=== PATIENT | male | born 2000 | race Caucasian/White ===

== ENCOUNTER 2021-03-27 16:07 | Emergency (ER) | payer OTHER, SELFPAY ==
--- NOTE | 2021-03-27 16:12 | XRR_ITS ---
PROCEDURE INFORMATION: Exam: XR Chest Exam date and time: 03/27/2021 4:12 PM Age: 21 years old Clinical indication: Patient HX: N/v fever x 6 days TECHNIQUE: Imaging protocol: XR of the chest. Views: 1 view. COMPARISON: No relevant prior studies available. FINDINGS: Lungs: Unremarkable. No consolidation. Pleural spaces: Unremarkable. No pleural effusion. No pneumothorax. Heart/Mediastinum: Unremarkable. No cardiomegaly. Bones/joints: Unremarkable. XR/XR chest 1V portable [id number] IMPRESSION: No acute findings.
[2021-03-27 17:04] VITALS: BP 106/71; PULSE 72; RESP 18; TEMP 37.1; O2SAT 99; BMI 22.8
[2021-03-27 19:46] LABS: Basophils % 0.5 %; Eosinophils # 0.2 10^3/uL (0.0-0.8); Eosinophils % 4.3 %; Hematocrit 44.5 % (42.0-52.0); Hemoglobin 15.9 g/dL (11.7-16.6); Lymphocytes # 1.8 10^3/uL (1.5-6.5); Lymphocytes % 41.2 %; Mean Corpuscular HGB Conc 35.7 g/dL (30.0-36.0); Mean Corpuscular Hemoglobin 30.1 pg (28.0-34.0); Mean Corpuscular Volume 84.3 fl (80-94); Mean Platelet Volume 9.7 fL (7.4-10.4); Monocytes # 0.6 10^3/uL (0.2-0.9); Neutrophils # 1.78 10^3/uL (1.8-8.0); Neutrophils % 40.5 %; Nucleated Red Blood Cells % 0 %; Platelet Count 239 10^3/cmm (130-400); Red Blood Count 5.28 10^6/uL (4.1-5.3); Red Cell Distribution Width 11.4 % (12.1-15.1); White Blood Count 4.4 10^3/uL (4.5-13.0)
[2021-03-27 20:05] LABS: Alanine Aminotransferase 33 U/L (0-41); Albumin Level 4.7 g/dL (3.5-5.2); Alkaline Phosphatase 109 IU/L (40-130); Anion Gap 18.7 (5-19); Aspartate Amino Transferase 30 U/L (0-40); Blood Urea Nitrogen 13 mg/dL (6-20); Calcium 8.9 mg/dL (8.5-10.5); Carbon Dioxide 25 mmol/L (22-29); Chloride 100 mmol/L (98-107); Glomerular Filtration Rate 123.2 mL/min (90-130); Glucose 80 mg/dL (65-115); Lipase 15 U/L (13-60); Osmolality Calculated 289 mOsm/kg (285-295); Potassium 3.7 mmol/L (3.5-5.1); Sodium 140 mmol/L (136-145); Total Bilirubin 0.4 mg/dL (0.15-1.2); Total Protein 7.7 g/dL (6.6-8.7)
--- NOTE | 2021-03-27 21:25 | W.ED.FEVER ---
HPI - Fever General: Chief Complaint: Fever Stated Complaint: sick n/v 6 days fever Time Seen by Provider: 03/27/21 21:21 History of Present Illness: HPI Narrative: Patient comes in with a 5 to 6-day history of nausea vomiting and diarrhea. Patient reports no localized abdominal pain. Patient states that last night his fever broke. Patient reports flulike syndrome. Patient appears mildly unwell but not toxic. Patient appears in no pain. Patient denies any chronic medical problems. Associated symptoms: Reports diarrhea, nausea and vomiting Review of Systems General: Reports: 10 or more systems reviewed and unremarkable except in HPI and below GI: Reports: nausea, vomiting and diarrhea Physical Exam Const: COMMON NORMALS: no acute distress and patient oriented x3 GENERAL APPEARANCE: cooperative HENMT: COMMON NORMALS: normocephalic, TM's normal bilaterally and Normal external nose present HEAD & SCALP: normal to inspection and normocephalic NOSE: Normal external nose present TYMPANIC MEMBRANE: TM's normal bilaterally MOUTH: Normal oral and palatal mucosa present THROAT: posterior oropharynx normal Eye: GENERAL EYE: appearance normal, both eyes and all related structures Neck/C-Spine: COMMON NORMALS: full ROM Lymph: LYMPHATIC: no lymphadenopathy noted Chest: COMMONS NORMALS: normal inspection of the chest Resp: COMMON NORMALS: normal respiratory effort EFFORT & INSPECTION: Yes able to speak in complete sentences Cardio: COMMON NORMALS: regular rate and regular rhythm RATE: regular rate RHYTHM: regular rhythm GI: COMMON NORMALS: Soft to palpation and non-tender AUSCULTATION: Yes normoactive bowel sounds PALPATION: Yes Soft to palpation : COMMON NORMALS: Yes no CVA tenderness BLADDER/KIDNEY EXAM: Yes no CVA tenderness Back/Pelvis: COMMON NORMALS: no CVA tenderness and thoracic and lumbar spine normal to inspection Extremity: COMMON NORMALS: normal to inspection Neuro: COMMON NORMALS: patient oriented x3 and moves all extremities Psych: COMMON NORMALS: mental status grossly normal and cooperative Skin: COMMON NORMALS: no rashes or lesions noted GENERAL SKIN EXAM: no rashes or lesions noted Course Vital Signs: Vital signs: Vital Signs Temperature 98.7 F 03/27/21 17:04 Pulse Rate 72 03/27/21 17:04 Respiratory Rate 18 03/27/21 17:04 Blood Pressure 106/71 03/27/21 17:04 Pulse Oximetry 99 03/27/21 17:04 MDM - Fever MDM Narrative: Medical decision making narrative: 21-year-old male comes in with nausea vomiting and diarrhea for the last 6 days. Patient reports last night his fever broke and he started feeling improved. Patient came in today due to continued nausea and poor appetite. On exam abdomen soft nontender. Bowel sounds are present. Skin is warm and dry. Vital signs are normal. Differential diagnosis includes viral syndrome, gastroenteritis, appendicitis. Laboratory values were unremarkable. White count was a little low at 4.4. Urinalysis was clear. Patient was infused with 1 L of IV fluid for mild dehydration and giving O dancer Cook for nausea. Patient had no further episodes of nausea and vomiting in the ER and was able to tolerate p.o. fluids. Viral swabs for flu and Covid were both negative. Suspect patient probably just has a bout of gastroenteritis that has persisted longer than the normal course. Patient does appear to be improving and recommend Zofran to help with nausea and increasing diet as tolerated. Lab Data: Labs: Lab Results 03/27/21 03/27/21 03/27/21 19:10 19:10 21:10 WBC 4.4 10^3/uL L 10^ 3/uL (4.5-13.0) RBC 5.28 10^6/uL 10^6 /uL (4.1-5.3) Hgb 15.9 g/dL g/dL (11.7-16.6) Hct 44.5 % % (42.0-52.0) MCV 84.3 fl fl (80-94) MCH 30.1 pg pg (28.0-34.0) MCHC 35.7 g/dL g/dL (30.0-36.0) RDW 11.4 % L % (12.1-15.1) Plt Count 239 10^3/cmm 10^3 /cmm (130-400) MPV 9.7 fL fL (7.4-10.4) Neut % (Auto) 40.5 % % Lymph % (Auto) 41.2 % % [place] % (Auto) 13.0 % % Eos % (Auto) 4.3 % % Baso % (Auto) 0.5 % % Neut # (Auto) 1.78 10^3/uL L 10 ^3/uL (1.8-8.0) Lymph # (Auto) 1.8 10^3/uL 10^3/ uL (1.5-6.5) [place] # (Auto) 0.6 10^3/uL 10^3/ uL (0.2-0.9) Eos # (Auto) 0.2 10^3/uL 10^3/ uL (0.0-0.8) Baso # (Auto) 0.0 10^3/uL 10^3/ uL (0.0-0.1) Nucleated RBC % (a uto) 0 % % Nucleated RBCs # 0.0 /100WBC /100W BC Sodium 140 mmol/L mmol/L (136-145) Potassium 3.7 mmol/L mmol/L (3.5-5.1) Chloride 100 mmol/L mmol/L (98-107) Carbon Dioxide 25 mmol/L mmol/L (22-29) Anion Gap 18.7 (5-19) BUN 13 mg/dL mg/dL (6-20) Creatinine 0.8 mg/dL mg/dL (0.7-1.2) GFR Calculation 123.2 mL/min mL/m in (90-130) Glucose 80 mg/dL mg/dL (65-115) Calculated Osmolal ity 289 mOsm/kg mOsm/ kg (285-295) Calcium 8.9 mg/dL mg/dL (8.5-10.5) Total Bilirubin 0.4 mg/dL mg/dL (0.15-1.2) AST 30 U/L U/L (0-40) ALT 33 U/L U/L (0-41) Alkaline Phosphata se 109 IU/L IU/L (40-130) Total Protein 7.7 g/dL g/dL (6.6-8.7) Albumin 4.7 g/dL g/dL (3.5-5.2) Globulin 3.0 g/dL g/dL (1.3-4.6) Lipase 15 U/L U/L (13-60) Urine Color Urine Appearance Urine pH Ur Specific Gravit y Urine Protein Urine Glucose (UA) Urine Ketones Urine Blood Urine Nitrate Urine Bilirubin Urine Urobilinogen Ur Leukocyte Negrita ase Influenza Type A A g Negative (Negative) Influenza Type B A g Negative (Negative) SARS-CoV-2 Ag (Rap id) 03/27/21 03/27/21 21:10 21:20 WBC RBC Hgb Hct MCV MCH MCHC RDW Plt Count MPV Neut % (Auto) Lymph % (Auto) [place] % (Auto) Eos % (Auto) Baso % (Auto) Neut # (Auto) Lymph # (Auto) [place] # (Auto) Eos # (Auto) Baso # (Auto) Nucleated RBC % (a uto) Nucleated RBCs # Sodium Potassium Chloride Carbon Dioxide Anion Gap BUN Creatinine GFR Calculation Glucose Calculated Osmolal ity Calcium Total Bilirubin AST ALT Alkaline Phosphata se Total Protein Albumin Globulin Lipase Urine Color Yellow (Yellow) Urine Appearance Clear (CLEAR) Urine pH 5 (5-7) Ur Specific Gravit y 1.025 (1.005-1.030) Urine Protein Neg (Negative) Urine Glucose (UA) Norm (Normal) Urine Ketones 2+ H (Negative) Urine Blood Neg (Negative) Urine Nitrate Negative (Negative) Urine Bilirubin 1+ H (Negative) Urine Urobilinogen 1 mg/dL H mg/dL (Negative) Ur Leukocyte Negrita ase Negative (Negative) Influenza Type A A g Influenza Type B A g SARS-CoV-2 Ag (Rap id) Negative (Negative) Discharge Plan Discharge Patient Disposition: Home Clinical Impression: Gastroenteritis Condition: Stable Prescriptions: New ondansetron 4 mg tablet,disintegrating 4 mg PO Q8H PRN (Reason: nausea and vomiting) Qty: 10 RF: 0 Discharge Orders: Discharge ED (Routine); Ordered 03/27/21 Ordered By: Jose Manuel Feliz Discharge Diet: Advance as tolerated Discharge Activity: Increase activity as tolerated Patient Instructions: Gastroenteritis (ED), Opioid Safety Activity Restrictions/Additional Instructions: Drink plenty of fluids. Increase diet as tolerated. Avoid greasy, spicy, and acidic foods for the next few days. Start with bland foods like bananas, rice, apples, toast and boiled chicken. Follow-up with primary care for further instructions. Return to the ER for new concerns or worsening symptoms. Stand Alone Forms: Work/School Release Coding Level of Care Code ED Software Writer for [employer]i [employer] Exam Comprehensive
[2021-03-27 21:28] LABS: Add Urine Microscopic? NO; Charge for UA Resulting for Rev
[2021-03-27 21:36] LABS: Influenza A by IFA Negative (Negative); Influenza B by IFA Negative (Negative); SARS Covid-2 Antigen Negative (Negative)
[2021-03-27 21:36] LABS: Bilirubin Urine 1+ (Negative); Blood Urine Neg (Negative); Glucose Urine UA Norm (Normal); Ketones Urine 2+ (Negative); Nitrate Urine Negative (Negative); Protein Urine Neg (Negative); Specific Gravity, Urine 1.025 (1.005-1.030); Urine Appearance Clear (CLEAR); Urine Color Yellow (Yellow); pH Urine 5 (5-7)
[2021-03-27 21:37] LABS: Leukocyte Esterase Urine Negative (Negative); Urobilinogen Urine 1 mg/dL (Negative)
[2021-03-27] MEDS: sodium chloride 0.9% 1,000 ML 999 ML IV (21:42)
[2021-03-27] MEDS: ondansetron 2 mg/ML SDV 2 mL 4 MG IVP (21:42)
[2021-03-27 22:23] VITALS: BP 116/64; PULSE 73; RESP 18; O2SAT 98
== END 2021-03-27 22:29 | disposition home or self-care (01) ==
PROVIDERS: Physician Assistant; Emergency Provider Nurse Practitioner Family
DX: K52.9 Noninfective gastroenteritis and colitis, unspecified (principal); Z20.822 Contact with and (suspected) exposure to COVID-19
CPT/HCPCS: 71045; 80053; 81003; 83690; 85025; 87426; 87804; 96361; 96374; 99283; J2405; J7030

== ENCOUNTER 2023-12-04 11:50 | Outpatient (CLI) | payer OTHER, SELFPAY ==
[2023-12-04 12:27] LABS: Sperm Immotility 20 % (50-60); Sperm Progressive Motility 80 % (31-34); Viscosity Semen Normal; Volume Semen 0.5 mL (2-5)
[2023-12-04 12:31] LABS: PH Semen 7.5 (7.0-8.0)
[2023-12-04 12:55] LABS: Pathology Referral Yes
== END 2023-12-04 11:51 | disposition home or self-care (01) ==
PROVIDERS: Visit Provider Obstetrics & Gynecology
DX: Z01.89 Encounter for other specified special examinations (principal)
CPT/HCPCS: 80503; 89320